=== PATIENT | female | born 1935 | race Caucasian/White ===

== ENCOUNTER 2022-09-07 17:41 | Emergency (ER) | payer MEDICARE ==
[~2022-09-07 17:41] MED LIST: Iopamidol-370 76% 500 ML MDV (1 ML CHARGE) ONE
[2022-09-07 20:58] LABS: Bacteria/HPF 4+ HPF (None Seen); Bilirubin Negative (Negative); Blood, Urine 2+ (Negative); Clarity Turbid (Clear); Glucose, Urine (Dipstick) Normal (Negative); Ketone, Urine Negative (Negative); Leukocyte 250 Leu/uL (Negative); Nitrite Negative (Negative); Protein, Urine (Dipstick) 20 mg/dL (Neg-Trace); Specific Gravity, Urine 1.021 (1.002-1.036); Squamous Epithelial 0-3 HPF (0-3); Urobilinogen Normal mg/dL (Less than 2); WBC/HPF 21-50 HPF (0-3); pH, Urine 5.5 (5.0-9.0)
[2022-09-07 22:40] LABS: #Basophils 0.1 thou/uL (0.0-0.2); #Eosinphils 0.2 thou/uL (0.0-0.7); #Monocytes 0.8 thou/uL (0.11-0.59); #Neutrophils 10.1 thou/uL (1.40-6.50); %Basophils 0.6 % (0.0-1.0); %Eosinophils 1.9 % (0.0-10.0); %Monocytes 6.6 % (0.0-10.0); Hemoglobin 12.4 g/dL (12.0-16.0); Mean Corpuscular HGB CONC 32.7 g/dL (32.0-36.0); Mean Corpuscular Hemoglobin 28.8 pg (27.0-31.0); Mean Corpuscular Volume 88.1 fl (78.0-98.0); Mean Platelet Volume 9.6 fL (7.4-10.4); Platelet Count 161 10x3/uL (130-400); RBC Distribution Width 13.3 % (11.5-14.5); White Blood Cell (WBC) Count 12.6 10x3/uL (4.8-10.8)
[2022-09-07 22:56] LABS: ALT (SGPT) 15 U/L (8-55); AST (SGOT) 31 U/L (5-34); Albumin 3.6 g/dL (3.4-4.8); Alkaline Phosphatase 46 U/L (40-110); Anion Gap 16 mmol/L (10-20); BUN (Urea Nitrogen) 22 mg/dL (9.8-20.1); Bilirubin, Total 0.5 mg/dL (0.2-1.2); Calc. Creatinine Clearance 0 mL/min (70-130); Calcium 9.1 mg/dL (7.8-10.44); Carbon Dioxide 22 mmol/L (23-31); Chloride 106 mmol/L (98-107); Estimated GFR 60; Globulin 2.7 g/dL (2.4-3.5); Glucose 108 mg/dL (83-110); Potassium 3.6 mmol/L (3.5-5.1); Protein, Total 6.3 g/dL (5.8-8.1); Sodium 140 mmol/L (136-145)
== END 2022-09-08 00:55 | disposition home or self-care (01) ==
LOC: ERS 17:41
DX: R29.6 Repeated falls (principal); N39.0 Urinary tract infection, site not specified; D72.829 Elevated white blood cell count, unspecified; E03.9 Hypothyroidism, unspecified; I10 Essential (primary) hypertension; J44.9 Chronic obstructive pulmonary disease, unspecified
CPT/HCPCS: 36415; 70450; 71260; 72125; 74177; 80053; 81003; 81015; 85025; 87040; 87086; 93005; 94760; 96365; J1956; Q9967

== ENCOUNTER 2022-11-03 19:51 | Emergency (ER) | payer MEDICARE ==
[2022-11-03] MEDS ORDERED: LORazepam 2 MG/ML SYR.(CARPUJECT) ONE (20:43)
== END 2022-11-03 22:16 ==
LOC: ERS 19:51
DX: R45.1 Restlessness and agitation (principal); I10 Essential (primary) hypertension; J44.9 Chronic obstructive pulmonary disease, unspecified; F03.90 Unspecified dementia, unspecified severity, without behavioral disturbance, psychotic disturbance, mood disturbance, and anxiety; Z87.891 Personal history of nicotine dependence; Z95.0 Presence of cardiac pacemaker
CPT/HCPCS: 82962; 96372; 99285; J2060; 36416

== ENCOUNTER 2022-11-04 04:40 | Emergency (ER) | payer MEDICARE, OTHER ==
[2022-11-04 05:37] LABS: #Basophils 0.1 thou/uL (0.0-0.2); #Eosinphils 0.2 thou/uL (0.0-0.7); #Monocytes 0.9 thou/uL (0.11-0.59); #Neutrophils 8.4 thou/uL (1.40-6.50); %Basophils 0.6 % (0.0-1.0); %Eosinophils 1.7 % (0.0-10.0); %Lymphocytes 10.8 % (21.0-51.0); %Monocytes 8.4 % (0.0-10.0); %Neutrophils 77.8 % (42.0-75.0); Hemoglobin 11.7 g/dL (12.0-16.0); Mean Corpuscular HGB CONC 31.9 g/dL (32.0-36.0); Mean Corpuscular Hemoglobin 29.8 pg (27.0-31.0); Mean Corpuscular Volume 93.6 fl (78.0-98.0); Platelet Count 165 10x3/uL (130-400); RBC Distribution Width 14.8 % (11.5-14.5); Red Blood Cell (RBC) Count 3.92 mill/uL (4.20-5.40); White Blood Cell (WBC) Count 10.7 10x3/uL (4.8-10.8)
[2022-11-04] MEDS ORDERED: Ketorolac Tromethamine 30 MG/ML VIAL ONE (05:54)
[2022-11-04 05:59] LABS: ALT (SGPT) 10 U/L (8-55); AST (SGOT) 18 U/L (5-34); Albumin 3.8 g/dL (3.4-4.8); Alkaline Phosphatase 47 U/L (40-110); Anion Gap 12 mmol/L (10-20); BUN (Urea Nitrogen) 15 mg/dL (9.8-20.1); Bilirubin, Total 0.5 mg/dL (0.2-1.2); Calc. Creatinine Clearance 0 mL/min (70-130); Calcium 9.1 mg/dL (7.8-10.44); Carbon Dioxide 25 mmol/L (23-31); Chloride 109 mmol/L (98-107); Estimated GFR 71; Globulin 2.3 g/dL (2.4-3.5); Glucose 101 mg/dL (83-110); Potassium 3.6 mmol/L (3.5-5.1); Protein, Total 6.1 g/dL (5.8-8.1); Sodium 142 mmol/L (136-145)
== END 2022-11-04 08:40 ==
LOC: ERS 04:40
DX: R07.89 Other chest pain (principal); F03.90 Unspecified dementia, unspecified severity, without behavioral disturbance, psychotic disturbance, mood disturbance, and anxiety; J44.9 Chronic obstructive pulmonary disease, unspecified; I10 Essential (primary) hypertension; E03.9 Hypothyroidism, unspecified; Z87.891 Personal history of nicotine dependence; Z79.899 Other long term (current) drug therapy
CPT/HCPCS: 36415; 71045; 80053; 85025; 93005; 94760; 96372; J1885

== ENCOUNTER 2022-11-27 16:01 | Inpatient (IN) | payer MEDICARE, OTHER ==
[2022-11-27 16:45] LABS: #Eosinphils 0.2 thou/uL (0.0-0.7); #Monocytes 0.9 thou/uL (0.11-0.59); #Neutrophils 10.5 thou/uL (1.40-6.50); %Basophils 0.3 % (0.0-1.0); %Eosinophils 1.3 % (0.0-10.0); %Lymphocytes 7.4 % (21.0-51.0); %Neutrophils 83.1 % (42.0-75.0); Hemoglobin 10.8 g/dL (12.0-16.0); Mean Corpuscular HGB CONC 32.8 g/dL (32.0-36.0); Mean Corpuscular Hemoglobin 29.6 pg (27.0-31.0); Mean Corpuscular Volume 90.1 fl (78.0-98.0); Mean Platelet Volume 9.5 fL (7.4-10.4); Platelet Count 209 10x3/uL (130-400); RBC Distribution Width 14.1 % (11.5-14.5); Red Blood Cell (RBC) Count 3.65 mill/uL (4.20-5.40); White Blood Cell (WBC) Count 12.7 10x3/uL (4.8-10.8)
[2022-11-27 17:11] LABS: ALT (SGPT) 12 U/L (8-55); AST (SGOT) 19 U/L (5-34); Albumin 3.7 g/dL (3.4-4.8); Alkaline Phosphatase 69 U/L (40-110); Anion Gap 14 mmol/L (10-20); BUN (Urea Nitrogen) 11 mg/dL (9.8-20.1); Bilirubin, Total 0.4 mg/dL (0.2-1.2); CK (CPK) 308 U/L (29-168); Calc. Creatinine Clearance 0 mL/min (70-130); Calcium 8.7 mg/dL (7.8-10.44); Carbon Dioxide 24 mmol/L (23-31); Chloride 105 mmol/L (98-107); Estimated GFR 58; Globulin 2.7 g/dL (2.4-3.5); Glucose 149 mg/dL (83-110); Potassium 3.6 mmol/L (3.5-5.1); Protein, Total 6.4 g/dL (5.8-8.1); Sodium 139 mmol/L (136-145)
[2022-11-27] MEDS ORDERED: fentaNYL 50 mcg/mL 1 mL Vial ONE (19:35)
[2022-11-27] MEDS ORDERED: TETANUS, DIPHTHERIA TOX,ADULT (TDVAX) 0.5 ML VIAL IM ONE (20:41)
[2022-11-27] MEDS ORDERED: Glucagon 1 MG/ML KIT IM PRN (20:41)
[2022-11-27] MEDS ORDERED: Dextrose 50% Abboject 50 ML SYRINGE SLOW IVP PRN (20:41)
[2022-11-27] MEDS ORDERED: traMADol HCl 50 MG TAB PO PRN (20:41)
[2022-11-27] MEDS ORDERED: Dextrose 5% in Water 1,000 ML IV PRN (20:41)
[2022-11-27] MEDS ORDERED: Ondansetron PF 4 MG/2 ML Vial IVP PRN (20:41)
[2022-11-27] MEDS ORDERED: Ipratropium/Albuterol 3 ML NEB NEB PRN (20:41)
[2022-11-27] MEDS: Sodium Chloride 0.9% 1,000 ML IV SCH (21:43)
[2022-11-27] MEDS: Morphine 2 MG/ML VIAL SLOW IVP PRN (21:43)
[2022-11-27 22:23] VITALS: BMI 19.7
[2022-11-27 23:31] LABS: CKMB 1.6 ng/mL (0-6.6)
[2022-11-28] MEDS: Acetaminophen 325 MG TAB PO SCH ×5 (00:14→20:20)
[2022-11-28] MEDS: Morphine 2 MG/ML VIAL SLOW IVP PRN ×3 (03:36→11:15)
[2022-11-28] MEDS ORDERED: Clindamycin/D5W 900 MG in Premix Bag 1 BAG IVPB SCH ×2 (07:15→10:00)
[2022-11-28] MEDS: TETANUS AND DIPHTHERIA TOX/PF 0.5 ML DISP.SYRIN IM SCH (07:26)
[2022-11-28] MEDS ORDERED: Vancomycin 1 GM in Premix Bag 1 BAG IVPB SCH (08:00)
[2022-11-28] MEDS: Famotidine/PF 20 mg/2ml Vial SLOW IVP SCH (08:24)
[2022-11-28] MEDS ORDERED: LevoFLOXacin 500 mg/D5W 500 MG in Premix Bag 1 BAG IVPB SCH (10:00)
[2022-11-28] MEDS: Donepezil HCl 10 MG TAB PO SCH (11:15)
[2022-11-28] MEDS ORDERED: LevoFLOXacin 500 mg/D5W 100 ML BAG ONE (12:20)
[2022-11-28] MEDS ORDERED: Vancomycin 1 GM/200 ML (FROZEN) BAG ONE (13:00)
[2022-11-28] MEDS ORDERED: fentaNYL PF 100 MCG/2 ML SYRINGE ONE (13:11)
[2022-11-28] MEDS ORDERED: Ketamine 50 MG/ML (10ML VIAL) ONE (13:12)
[2022-11-28] MEDS ORDERED: Midazolam HCl 2 mg/2 ml Vial ONE (13:36)
[2022-11-28] MEDS ORDERED: fentaNYL 50 mcg/mL 1 mL Vial ONE (13:37)
[2022-11-28] MEDS ORDERED: Rocuronium Bromide 10 MG/ML (10ML VIAL) ONE (13:49)
[2022-11-28 15:41] LABS: Bacteria/HPF None Seen HPF (None Seen); Bilirubin Negative (Negative); Blood, Urine Negative (Negative); CAUTI Indications for Culture Alt mental st,lethar; Clarity Clear (Clear); Glucose, Urine (Dipstick) Normal (Negative); Ketone, Urine Negative (Negative); Leukocyte Negative Leu/uL (Negative); Nitrite Negative (Negative); Protein, Urine (Dipstick) Negative (Neg-Trace); RBC/HPF 0-3 HPF (0-3); Specific Gravity, Urine 1.019 (1.002-1.036); Squamous Epithelial None Seen HPF (0-3); Urobilinogen Normal mg/dL (Less than 2); WBC/HPF 0-3 HPF (0-3); pH, Urine 6.5 (5.0-9.0)
[2022-11-28 15:42] LABS: Urine Culture Reflex No No
[2022-11-28] MEDS ORDERED: Clindamycin/D5W 600 MG in Premix Bag 1 BAG IVPB SCH (16:01)
[2022-11-28 21:54] LABS: #Basophils 0.1 thou/uL (0.0-0.2); #Eosinphils 0.3 thou/uL (0.0-0.7); #Monocytes 0.6 thou/uL (0.11-0.59); #Neutrophils 6.1 thou/uL (1.40-6.50); %Basophils 0.6 % (0.0-1.0); %Eosinophils 3.4 % (0.0-10.0); %Lymphocytes 9.1 % (21.0-51.0); %Monocytes 7.1 % (0.0-10.0); %Neutrophils 79.4 % (42.0-75.0); Hemoglobin 9.2 g/dL (12.0-16.0); Mean Corpuscular HGB CONC 32.5 g/dL (32.0-36.0); Mean Corpuscular Hemoglobin 29.8 pg (27.0-31.0); Mean Corpuscular Volume 91.6 fl (78.0-98.0); Mean Platelet Volume 9.7 fL (7.4-10.4); Platelet Count 131 10x3/uL (130-400); RBC Distribution Width 14.1 % (11.5-14.5); Red Blood Cell (RBC) Count 3.09 mill/uL (4.20-5.40); White Blood Cell (WBC) Count 7.7 10x3/uL (4.8-10.8)
[2022-11-28 22:17] LABS: ALT (SGPT) 17 U/L (8-55); AST (SGOT) 36 U/L (5-34); Albumin 2.9 g/dL (3.4-4.8); Alkaline Phosphatase 56 U/L (40-110); Anion Gap 8 mmol/L (10-20); BUN (Urea Nitrogen) 9 mg/dL (9.8-20.1); Bilirubin, Total 0.6 mg/dL (0.2-1.2); Calc. Creatinine Clearance 38 mL/min (70-130); Calcium 7.8 mg/dL (7.8-10.44); Carbon Dioxide 24 mmol/L (23-31); Chloride 106 mmol/L (98-107); Estimated GFR 61; Globulin 2.3 g/dL (2.4-3.5); Glucose 124 mg/dL (83-110); Potassium 3.1 mmol/L (3.5-5.1); Protein, Total 5.2 g/dL (5.8-8.1); Sodium 135 mmol/L (136-145)
[2022-11-28] MEDS: Ipratropium/Albuterol 3 ML NEB NEB SCH (22:29)
[2022-11-28] MEDS: CEFAZOLIN 2 GM in Sodium Chloride 0.9% 100 ML IVPB SCH (23:55)
[2022-11-29] MEDS: Acetaminophen 325 MG TAB PO SCH ×4 (02:16→20:37)
[2022-11-29] MEDS: TETANUS AND DIPHTHERIA TOX/PF 0.5 ML DISP.SYRIN IM SCH (02:29)
[2022-11-29] MEDS: CEFAZOLIN 2 GM in Sodium Chloride 0.9% 100 ML IVPB SCH ×2 (05:21→14:18)
[2022-11-29 05:49] LABS: #Eosinphils 0.2 thou/uL (0.0-0.7); #Monocytes 0.6 thou/uL (0.11-0.59); #Neutrophils 5.6 thou/uL (1.40-6.50); %Basophils 0.5 % (0.0-1.0); %Eosinophils 2.3 % (0.0-10.0); %Monocytes 7.7 % (0.0-10.0); %Neutrophils 76.7 % (42.0-75.0); Hemoglobin 9.3 g/dL (12.0-16.0); Mean Corpuscular HGB CONC 31.8 g/dL (32.0-36.0); Mean Corpuscular Hemoglobin 29.2 pg (27.0-31.0); Mean Corpuscular Volume 91.5 fl (78.0-98.0); Mean Platelet Volume 9.9 fL (7.4-10.4); Platelet Count 133 10x3/uL (130-400); RBC Distribution Width 13.8 % (11.5-14.5); Red Blood Cell (RBC) Count 3.19 mill/uL (4.20-5.40); White Blood Cell (WBC) Count 7.3 10x3/uL (4.8-10.8)
[2022-11-29 06:01] LABS: Anion Gap 12 mmol/L (10-20); BUN (Urea Nitrogen) 10 mg/dL (9.8-20.1); Calc. Creatinine Clearance 38 mL/min (70-130); Calcium 7.8 mg/dL (7.8-10.44); Carbon Dioxide 25 mmol/L (23-31); Chloride 106 mmol/L (98-107); Estimated GFR 61; Glucose 117 mg/dL (83-110); Sodium 140 mmol/L (136-145)
[2022-11-29 06:07] LABS: Troponin I 0.107 ng/mL (< 0.028)
[2022-11-29] MEDS: Sodium Chloride 0.9% 1,000 ML IV SCH ×2 (06:24→21:58)
[2022-11-29] MEDS ORDERED: CHOLECALCIFEROL 1250 MCG PO SCH (06:45)
[2022-11-29] MEDS: Ipratropium/Albuterol 3 ML NEB NEB SCH ×4 (07:02→22:09)
[2022-11-29] MEDS: Donepezil HCl 10 MG TAB PO SCH (08:28)
[2022-11-29] MEDS: Mirtazapine 15 MG TAB PO SCH (08:29)
[2022-11-29] MEDS: QUEtiapine 25 MG TAB PO SCH ×2 (08:29→20:38)
[2022-11-29] MEDS: Loratadine 10 MG TAB PO SCH (08:29)
[2022-11-29] MEDS: Ergocalciferol 1.25 MG(50,000 UNITS) CAP PO SCH ×2 (08:29→09:01)
[2022-11-29] MEDS: Famotidine/PF 20 mg/2ml Vial SLOW IVP SCH (08:30)
[2022-11-29] MEDS: Fluticasone Propionate Nasal Spray 16 gm Bottle NASAL SCH ×3 (08:30→21:58)
[2022-11-29] MEDS ORDERED: Potassium Chloride 20 MEQ TAB PO SCH (08:45)
[2022-11-29] MEDS ORDERED: Ketorolac Tromethamine 30 MG/ML VIAL IVP PRN (08:57)
[2022-11-29] MEDS ORDERED: Non-Formulary Item 1 EACH (Triamterene/Hydrochlorothiazid [Triamterene-Hctz 37.5-25 Mg Cp PO SCH (09:00)
[2022-11-29] MEDS ORDERED: Fluticasone Propionate Nasal Spray 16 gm Bottle NASAL SCH (09:00)
[2022-11-29] MEDS ORDERED: Non-Formulary Item 1 EACH (Amlodipine Besylate [Norvasc] 2.5 MG Tablet) PO SCH (09:00)
[2022-11-29] MEDS ORDERED: Non-Formulary Item 1 EACH (Mirtazapine [Mirtazapine] 7.5 MG Tablet) PO SCH (09:00)
[2022-11-29] MEDS ORDERED: Non-Formulary Item 1 EACH (Cetirizine Hcl [Zyrtec] 10 MG Capsule) PO SCH (09:00)
[2022-11-29] MEDS ORDERED: GALANTAMINE HBR 8 MG PO SCH (09:00)
[2022-11-29] MEDS ORDERED: Amlodipine 5 MG TAB PO SCH (09:00)
[2022-11-29] MEDS ORDERED: Non-Formulary Item 1 EACH (Levothyroxine Sodium [Levothyroxine Sodium] 50 MCG Capsule) PO SCH (09:00)
[2022-11-29 09:01] LABS: Magnesium 1.6 mg/dL (1.6-2.6)
[2022-11-29] MEDS: Aspirin 81 mg Enteric Coated Tablet PO SCH ×2 (09:49→20:38)
[2022-11-29] MEDS: Triamterene/Hydrochlorothiazide 37.5 mg/25 mg Tablet PO SCH (09:50)
[2022-11-29] MEDS: Acetaminophen/Codeine 30-300mg Tablet PO SCH ×3 (10:14→21:59)
[2022-11-29 11:08] LABS: Phosphorus 2.8 mg/dL (2.3-4.7)
[2022-11-29] MEDS: Ferrous Sulfate 325 MG TAB PO SCH (16:52)
[2022-11-29] MEDS: Ascorbic Acid 500 mg Chewable Tablet PO SCH (20:38)
[2022-11-29] MEDS: Sertraline 25 MG TAB PO SCH (20:38)
[2022-11-29] MEDS ORDERED: Acetaminophen/Codeine 30-300mg Tablet PO PRN (22:23)
[2022-11-30] MEDS: Acetaminophen 325 MG TAB PO SCH ×4 (02:25→20:14)
[2022-11-30] MEDS: Levothyroxine Sodium 50 MCG TAB PO SCH (05:50)
[2022-11-30 06:47] LABS: Anion Gap 13 mmol/L (10-20); BUN (Urea Nitrogen) 13 mg/dL (9.8-20.1); Calc. Creatinine Clearance 42 mL/min (70-130); Calcium 8.4 mg/dL (7.8-10.44); Carbon Dioxide 24 mmol/L (23-31); Chloride 112 mmol/L (98-107); Estimated GFR 70; Glucose 100 mg/dL (83-110); Magnesium 1.9 mg/dL (1.6-2.6); Phosphorus 2.6 mg/dL (2.3-4.7); Potassium 3.8 mmol/L (3.5-5.1); Sodium 145 mmol/L (136-145)
[2022-11-30] MEDS: Ipratropium/Albuterol 3 ML NEB NEB SCH ×3 (08:07→19:11)
[2022-11-30] MEDS: QUEtiapine 25 MG TAB PO SCH ×2 (10:17→20:13)
[2022-11-30] MEDS: Aspirin 81 mg Enteric Coated Tablet PO SCH ×2 (10:17→20:13)
[2022-11-30] MEDS: Mirtazapine 15 MG TAB PO SCH (10:17)
[2022-11-30] MEDS: Loratadine 10 MG TAB PO SCH (10:17)
[2022-11-30] MEDS: Ascorbic Acid 500 mg Chewable Tablet PO SCH ×2 (10:18→20:13)
[2022-11-30] MEDS: Donepezil HCl 10 MG TAB PO SCH (10:18)
[2022-11-30] MEDS: Ferrous Sulfate 325 MG TAB PO SCH ×4 (10:18→20:14)
[2022-11-30] MEDS: Fluticasone Propionate Nasal Spray 16 gm Bottle NASAL SCH ×2 (10:19→20:15)
[2022-11-30] MEDS: Triamterene/Hydrochlorothiazide 37.5 mg/25 mg Tablet PO SCH (10:20)
[2022-11-30] MEDS: Sertraline 25 MG TAB PO SCH (20:12)
[2022-11-30] MEDS: Sodium Chloride 0.9% 1,000 ML IV SCH (20:16)
[2022-12-01] MEDS: Ipratropium/Albuterol 3 ML NEB NEB SCH ×2 (02:06→06:29)
[2022-12-01] MEDS: Acetaminophen 325 MG TAB PO SCH ×2 (02:41→09:39)
[2022-12-01] MEDS: Levothyroxine Sodium 50 MCG TAB PO SCH (05:52)
[2022-12-01] MEDS: Ascorbic Acid 500 mg Chewable Tablet PO SCH (09:39)
[2022-12-01] MEDS: Aspirin 81 mg Enteric Coated Tablet PO SCH (09:39)
[2022-12-01] MEDS: Fluticasone Propionate Nasal Spray 16 gm Bottle NASAL SCH (09:40)
[2022-12-01] MEDS: Loratadine 10 MG TAB PO SCH (09:40)
[2022-12-01] MEDS: Ferrous Sulfate 325 MG TAB PO SCH (09:40)
[2022-12-01] MEDS: Ergocalciferol 1.25 MG(50,000 UNITS) CAP PO SCH (09:41)
[2022-12-01] MEDS: QUEtiapine 25 MG TAB PO SCH (09:41)
[2022-12-01] MEDS: Donepezil HCl 10 MG TAB PO SCH (10:56)
[2022-12-01] MEDS: Triamterene/Hydrochlorothiazide 37.5 mg/25 mg Tablet PO SCH (10:57)
[2022-12-01] MEDS: Mirtazapine 15 MG TAB PO SCH (10:57)
[2022-12-01 12:31] VITALS: BP 128/69; TEMP 98.3
[2022-12-01] MEDS ORDERED: Lorazepam 1 MG TAB PO SCH (12:45)
== END 2022-12-01 14:00 | DRG 521 ==
LOC: ERS 16:01 → SJJU 19:49
PROVIDERS: ADMIT Specialist; ATTEND Specialist
PROC: 0SRS0JZ Replacement of Left Hip Joint, Femoral Surface with Synthetic Substitute, Open Approach (ICD-10-PCS; principal; 2022-11-28)
DX: S72.012A Unspecified intracapsular fracture of left femur, initial encounter for closed fracture (principal); J96.01 Acute respiratory failure with hypoxia; I10 Essential (primary) hypertension; F03.90 Unspecified dementia, unspecified severity, without behavioral disturbance, psychotic disturbance, mood disturbance, and anxiety; F32.A Depression, unspecified; W19.XXXA Unspecified fall, initial encounter; E03.9 Hypothyroidism, unspecified; J44.9 Chronic obstructive pulmonary disease, unspecified; Z90.49 Acquired absence of other specified parts of digestive tract; Z95.0 Presence of cardiac pacemaker; Z87.891 Personal history of nicotine dependence; Z88.1 Allergy status to other antibiotic agents; Z88.0 Allergy status to penicillin; Z88.8 Allergy status to other drugs, medicaments and biological substances; Y92.9 Unspecified place or not applicable
CPT/HCPCS: 36415; 36416; 70450; 71045; 72125; 72170; 80048; 80053; 81001; 82550; 82553; 83605; 83735; 83880; 84100; 84484; 85025; 93005; 94640; 96374; C1713; C1776; J1956; J2250; J2272; J3010; J3370-JW; J3490; J7050; J7620; P9045; S0028